=== PATIENT | male | born 1980 | race Hispanic/Latino ===

== ENCOUNTER 2017-07-27 10:46 | Emergency (ER) | payer SELFPAY ==
[2017-07-27] MEDS ORDERED: Dexamethasone 4 mg/ml Vial ONE ×2 (11:56→11:59)
[2017-07-27] MEDS ORDERED: cefTRIAXone\\ROCEPHIN 1 GM VIAL ONE (11:57)
[2017-07-27] MEDS ORDERED: Lidocaine 1% (PF) 30 ML VIAL ONE (11:57)
== END 2017-07-27 12:44 | disposition home or self-care (01) ==
LOC: ERS 10:46
DX: J02.9 Acute pharyngitis, unspecified (principal); F17.210 Nicotine dependence, cigarettes, uncomplicated
CPT/HCPCS: 87430; 96372; J0696; J1100; J2001

== ENCOUNTER 2017-10-06 13:53 | Emergency (ER) | payer SELFPAY ==
[2017-10-06 16:01] LABS: #Eosinphils 0.1 thou/uL (0.0-0.7); #Lymphocytes 3.1 thou/uL (1.20-3.40); #Monocytes 0.8 thou/uL (0.11-0.59); #Neutrophils 6.1 thou/uL (1.40-6.50); %Basophils 0.4 % (0.0-1.0); %Eosinophils 0.9 % (0.0-10.0); %Lymphocytes 30.6 % (21.0-51.0); %Monocytes 7.6 % (0.0-10.0); %Neutrophils 60.5 % (42.0-75.0); Hemoglobin 15.9 g/dL (14.0-18.0); Mean Corpuscular HGB CONC 33.9 g/dL (32.0-36.0); Mean Corpuscular Hemoglobin 30.9 pg (27.0-31.0); Mean Corpuscular Volume 91.1 fl (80.0-94.0); Mean Platelet Volume 6.8 fL (7.4-10.4); Platelet Count 375 thou/uL (130-400); RBC Distribution Width 11.9 % (11.5-14.5); Red Blood Cell (RBC) Count 5.13 mill/uL (4.70-6.10)
[2017-10-06 16:23] LABS: ALT (SGPT) 37 U/L (8-55); AST (SGOT) 20 U/L (5-34); Albumin 4.6 g/dL (3.5-5.0); Alkaline Phosphatase 109 U/L (40-150); Anion Gap 10 mmol/L (10-20); BUN (Urea Nitrogen) 21 mg/dL (8.9-20.6); Bilirubin, Total 0.4 mg/dL (0.2-1.2); Calc. Creatinine Clearance 0 mL/min (70-130); Calcium 9.8 mg/dL (7.8-10.44); Carbon Dioxide 26 mmol/L (22-29); Chloride 104 mmol/L (98-107); Estimated GFR-MDRD Greater than 90; Globulin 3.3 g/dL (2.4-3.5); Glucose 106 mg/dL (70-105); Lipase 23 U/L (8-78); Protein, Total 7.9 g/dL (6.0-8.3); Sodium 136 mmol/L (136-145)
[2017-10-06 18:15] LABS: Bilirubin Negative (Negative); Blood, Urine Trace (Negative); Clarity CLEAR (Clear); Glucose, Urine (Dipstick) Negative (Negative); Leukocyte Negative (Negative); Nitrite Negative (Negative); Protein, Urine (Dipstick) Negative (Neg-Trace); Specific Gravity, Urine 1.011 (1.002-1.036); Urobilinogen 0.2 mg/dL (0.2-1.0)
[2017-10-06 18:42] LABS: Bacteria/HPF None Seen HPF (None Seen); Hyaline Casts/LPF NONE SEEN LPF (0-3 Hyaline); RBC/HPF 0-3 HPF (0-3); Squamous Epithelial None Seen HPF (0-3); WBC/HPF 0-3 HPF (0-3)
[2017-10-06] MEDS ORDERED: Fentanyl 100 MCG/2 ML VIAL ONE ×2 (19:23→21:16)
[2017-10-06] MEDS ORDERED: Ketorolac Tromethamine 30 MG/ML VIAL ONE (21:16)
--- NOTE | 2017-10-06 23:15 | ULT ---
EXAM: GALLBLADDER ULTRASOUND 10/06/17 HISTORY: Right upper quadrant pain. COMPARISON: 06/27/15 TECHNIQUE: Utilizing a multihertz transducer, sonographic imaging of the right upper quadrant was performed in t he longitudinal and transverse plane. FINDINGS: Pancreas is obscured by bowel gas. Heterogeneous echotexture of the liver which may be due to hepatic steatosis or hepatocellular diseas e. Limited vascular hepatic masses and intrahepatic biliary dilatation. Main portal vein is patent. Appropriate directional flow. Right kidney demonstrates cortical thinning. No hydronephrosis. Right kidney measures 4.9 x 11.2 x 5. 4 cm. No sonographic evidence of cholelithiasis, gallbladder wall thickening or pericholecystic fluid. Nega tive Beasley's sign. Common bile duct diameter is 0.3 cm. IMPRESSION: No sonographic evidence of cholelithiasis or cholecystitis. POS: [facility]
--- NOTE | 2017-10-07 00:26 | CT ---
EXAM: ABDOMEN CT WITH CONTRAST PELVIC CT WITH CONTRAST HISTORY: Nausea. Right-sided abdominal pain. Pain radiates to the upper back. COMPARISON: 11/23/2011. TECHNIQUE: Abdomen and pelvic CT performed with IV contrast. Enteric contrast was not administered. Coronal re formatted images are submitted for interpretation. FINDINGS: ABDOMEN CT: Chronic changes in lung bases. Heart size is within normal limits. No pericardial effusion. The de scending thoracic aorta and abdominal aorta are normal caliber. No periaortic fat stranding. Symmetric attenuation of the psoas muscles. Intra- and extrahepatic pleural vein is patent. Gallbladder is unremarkable. Liver, spleen, and adrenal glands have appropriate enhancement. There is mild atrophy of the body of the pancreas, unchanged from the prior exam. Symmetric enhancement of the kidneys. Bilaterally, no obstructive uropathy. No gastrohepatic, retrocrural, or periportal lymphadenopathy. No mesenteric mass, lymphadenopathy, free air, or free fluid. Limited evaluation of the alimentary canal due to lack of oral contrast. Gastric mucosa, duodenum, and multiple normal-caliber small bowel loops are noted. Ileoce kalin junction is normal. Normal caliber appendix. Scattered fecal material in the nondistended, nond ilated colon. Occasional diverticulum in the cecum and colon. No diverticulitis. PELVIC CT: Urinary bladder is unremarkable. No pelvic mass, lymphadenopathy, free air, or free fluid. No lytic or blastic lesions in the osseous structures. IMPRESSION: No acute abnormality in the abdomen or pelvis. POS: [facility]
== END 2017-10-06 23:43 | disposition home or self-care (01) ==
LOC: ERS 13:53
DX: R10.11 Right upper quadrant pain (principal); F17.210 Nicotine dependence, cigarettes, uncomplicated
CPT/HCPCS: 36415; 74177; 76705; 80053; 81003; 81015; 83690; 85025; 96374; 96375; 96376; J1885; J3010

== ENCOUNTER 2017-10-07 09:05 | Outpatient (CLI) | payer OTHER ==
--- NOTE | 2017-10-07 10:57 | MRI ---
MRI LEFT FOREARM WITHOUT CONTRAST: History: Injury. Comparison: None. FINDINGS: There is no fracture or malalignment. No stress edema. Muscles: Normal muscle signal. No evidence for strain. No evidence of partial tearing. No hemorrhage. Vasculature: Intact. Ligaments: Visualized portions of the collateral ligaments of the elbow are intact. IMPRESSION: Normal exam of the forearm. POS: [facility]
== END 2017-10-07 09:06 | disposition home or self-care (01) ==
LOC: MRI 09:05
PROVIDERS: ATTEND Family Medicine
DX: S56.812 Strain of other muscles, fascia and tendons at forearm level, left arm (principal)

== ENCOUNTER 2018-02-21 23:35 | Emergency (ER) | payer SELFPAY ==
[2018-02-21] MEDS ORDERED: Lidocaine 1% w/Epinephrine 1:100K 20 ML VIAL ONE (23:45)
[2018-02-22] MEDS ORDERED: Adacel (T-DAP) 0.5 ML VIAL ONE (00:08)
== END 2018-02-22 00:36 | disposition home or self-care (01) ==
LOC: ERS 23:35
DX: S61.512A Laceration without foreign body of left wrist, initial encounter (principal); F17.210 Nicotine dependence, cigarettes, uncomplicated; W26.0XXA Contact with knife, initial encounter; Y92.009 Unspecified place in unspecified non-institutional (private) residence as the place of occurrence of the external cause
CPT/HCPCS: 12001; 90471; 90715; J2001

== ENCOUNTER 2018-02-22 17:21 | Emergency (ER) | payer SELFPAY ==
[2018-02-22] MEDS ORDERED: Bacitracin Zinc 1 Packet ONE (19:33)
== END 2018-02-22 19:44 | disposition home or self-care (01) ==
LOC: ERS 17:21
DX: Z48.817 Encounter for surgical aftercare following surgery on the skin and subcutaneous tissue (principal); F17.210 Nicotine dependence, cigarettes, uncomplicated
CPT/HCPCS: 99282

== ENCOUNTER 2018-03-04 17:55 | Emergency (ER) | payer SELFPAY | END 2018-03-04 18:22 | disposition home or self-care (01) | LOC: ERS 17:55 | DX: S51.812D Laceration without foreign body of left forearm, subsequent encounter (principal); F17.210 Nicotine dependence, cigarettes, uncomplicated ==

== ENCOUNTER 2018-03-08 21:00 | Emergency (ER) | payer SELFPAY ==
[2018-03-08 21:30] LABS: #Eosinphils 0.1 thou/uL (0.0-0.7); #Lymphocytes 3.5 thou/uL (1.20-3.40); #Monocytes 0.9 thou/uL (0.11-0.59); #Neutrophils 5.7 thou/uL (1.40-6.50); %Basophils 0.4 % (0.0-1.0); %Eosinophils 1.3 % (0.0-10.0); %Lymphocytes 34.3 % (21.0-51.0); %Monocytes 8.7 % (0.0-10.0); %Neutrophils 55.4 % (42.0-75.0); Hemoglobin 14.2 g/dL (14.0-18.0); Mean Corpuscular HGB CONC 35.7 g/dL (32.0-36.0); Mean Corpuscular Hemoglobin 31.3 pg (27.0-31.0); Mean Corpuscular Volume 87.6 fl (80.0-94.0); Platelet Count 291 thou/uL (130-400); RBC Distribution Width 11.9 % (11.5-14.5); Red Blood Cell (RBC) Count 4.55 mill/uL (4.70-6.10); White Blood Cell (WBC) Count 10.2 thou/uL (4.8-10.8)
[2018-03-08 21:46] LABS: Bilirubin Negative (Negative); Blood, Urine Negative (Negative); Clarity CLEAR (Clear); Glucose, Urine (Dipstick) Negative (Negative); Leukocyte Negative (Negative); Nitrite Negative (Negative); Protein, Urine (Dipstick) Negative (Neg-Trace); Specific Gravity, Urine 1.024 (1.002-1.036); pH, Urine 6.5 (5.0-9.0)
[2018-03-08 21:51] LABS: ALT (SGPT) 27 U/L (8-55); AST (SGOT) 19 U/L (5-34); Albumin 4.6 g/dL (3.5-5.0); Alkaline Phosphatase 122 U/L (40-150); Anion Gap 12 mmol/L (10-20); BUN (Urea Nitrogen) 17 mg/dL (8.9-20.6); Bilirubin, Total 0.3 mg/dL (0.2-1.2); CK (CPK) 458 U/L (30-200); Calc. Creatinine Clearance 0 mL/min (70-130); Calcium 9.6 mg/dL (7.8-10.44); Carbon Dioxide 24 mmol/L (22-29); Chloride 106 mmol/L (98-107); Estimated GFR-MDRD Greater than 90; Globulin 3.1 g/dL (2.4-3.5); Glucose 97 mg/dL (70-105); Magnesium 2.4 mg/dL (1.6-2.6); Potassium 4.1 mmol/L (3.5-5.1); Protein, Total 7.7 g/dL (6.0-8.3); Sodium 138 mmol/L (136-145)
== END 2018-03-08 23:05 | disposition home or self-care (01) ==
LOC: ERS 21:00
DX: E86.9 Volume depletion, unspecified (principal); F17.210 Nicotine dependence, cigarettes, uncomplicated
CPT/HCPCS: 36415; 80053; 81003; 82550; 83735; 85025; 96360

== ENCOUNTER 2018-03-26 08:16 | Emergency (ER) | payer SELFPAY ==
[2018-03-26 08:52] LABS: #Eosinphils 0.1 thou/uL (0.0-0.7); #Lymphocytes 1.9 thou/uL (1.20-3.40); #Monocytes 0.6 thou/uL (0.11-0.59); #Neutrophils 6.1 thou/uL (1.40-6.50); %Basophils 0.3 % (0.0-1.0); %Eosinophils 1.2 % (0.0-10.0); %Lymphocytes 21.9 % (21.0-51.0); %Monocytes 7.3 % (0.0-10.0); %Neutrophils 69.3 % (42.0-75.0); Hemoglobin 15.2 g/dL (14.0-18.0); Mean Corpuscular HGB CONC 34.7 g/dL (32.0-36.0); Mean Corpuscular Hemoglobin 30.2 pg (27.0-31.0); Mean Corpuscular Volume 87.3 fL (78.0-98.0); Mean Platelet Volume 6.9 fL (7.4-10.4); Platelet Count 351 thou/uL (130-400); RBC Distribution Width 11.9 % (11.5-14.5); Red Blood Cell (RBC) Count 5.02 mill/uL (4.70-6.10); White Blood Cell (WBC) Count 8.8 thou/uL (4.8-10.8)
[2018-03-26 08:54] LABS: Bilirubin Negative (Negative); Blood, Urine Negative (Negative); Clarity CLEAR (Clear); Glucose, Urine (Dipstick) Negative (Negative); Leukocyte Negative (Negative); Nitrite Negative (Negative); Protein, Urine (Dipstick) Trace mg/dL (Neg-Trace); Specific Gravity, Urine 1.021 (1.002-1.036); Urobilinogen 0.2 mg/dL (0.2-1.0); pH, Urine 7.5 (5.0-9.0)
[2018-03-26] MEDS ORDERED: Dicyclomine 20 MG TAB ONE (08:55)
[2018-03-26] MEDS ORDERED: Ondansetron ODT 8 MG TAB ONE (08:55)
[2018-03-26 09:01] LABS: ALT (SGPT) 37 U/L (8-55); AST (SGOT) 22 U/L (5-34); Albumin 4.7 g/dL (3.5-5.0); Alkaline Phosphatase 117 U/L (40-150); Anion Gap 15 mmol/L (10-20); BUN (Urea Nitrogen) 17 mg/dL (8.9-20.6); Bilirubin, Total 0.4 mg/dL (0.2-1.2); CK (CPK) 363 U/L (30-200); Calc. Creatinine Clearance 0 mL/min (70-130); Calcium 9.7 mg/dL (7.8-10.44); Carbon Dioxide 25 mmol/L (22-29); Chloride 103 mmol/L (98-107); Estimated GFR-MDRD 88; Globulin 3.2 g/dL (2.4-3.5); Glucose 110 mg/dL (70-105); Lipase 21 U/L (8-78); Potassium 4.1 mmol/L (3.5-5.1); Protein, Total 7.9 g/dL (6.0-8.3); Sodium 139 mmol/L (136-145)
[2018-03-26 09:05] LABS: CKMB 3.4 ng/mL (0-6.6); Troponin I Less than 0.010 ng/mL (< 0.028)
--- NOTE | 2018-03-26 09:28 | RAD ---
PA AND LATERAL VIEWS CHEST: History: Chest pain FINDINGS: Comparison made with exam of 04-07-08. The cardiomediastinum is normal. The lungs are expanded and clear. The bony thorax is inromal. IMPRESSION: Normal exam. POS: [facility]
[2018-03-26 11:18] LABS: Troponin I Less than 0.010 ng/mL (< 0.028)
== END 2018-03-26 12:25 | disposition home or self-care (01) ==
LOC: ERS 08:16
DX: R10.9 Unspecified abdominal pain (principal); R19.7 Diarrhea, unspecified; F17.210 Nicotine dependence, cigarettes, uncomplicated
CPT/HCPCS: 36415; 71046; 80053; 81003; 82550; 82553; 83690; 84484; 85025; 93005; 96360

== ENCOUNTER 2018-08-05 12:16 | Emergency (ER) | payer OTHER, SELFPAY ==
[2018-08-05] MEDS ORDERED: Ketorolac Tromethamine 30 MG/ML VIAL ONE (12:39)
[2018-08-05] MEDS ORDERED: traMADol HCl 50 MG TAB ONE (14:02)
--- NOTE | 2018-08-05 14:21 | RAD ---
RIGHT FOOT 3 VIEWS: Date: 08/05/18 HISTORY: injury. Right foot pain. FINDINGS/IMPRESSION: No fracture or dislocation is seen. POS: [facility]
== END 2018-08-05 14:09 | disposition home or self-care (01) ==
LOC: ERS 12:16
DX: S90.31XA Contusion of right foot, initial encounter (principal); F17.210 Nicotine dependence, cigarettes, uncomplicated; Z79.899 Other long term (current) drug therapy; W23.0XXA Caught, crushed, jammed, or pinched between moving objects, initial encounter
CPT/HCPCS: 96372; J1885

== ENCOUNTER 2018-09-25 19:45 | Emergency (ER) | payer SELFPAY | END 2018-09-25 20:15 | disposition home or self-care (01) | LOC: ERS 19:45 | DX: B86 Scabies (principal); F17.210 Nicotine dependence, cigarettes, uncomplicated | CPT/HCPCS: 99282 ==

== ENCOUNTER 2018-10-13 18:29 | Emergency (ER) | payer SELFPAY | END 2018-10-13 19:53 | disposition home or self-care (01) | LOC: ERS 18:29 | DX: L25.9 Unspecified contact dermatitis, unspecified cause (principal); L03.113 Cellulitis of right upper limb; F17.210 Nicotine dependence, cigarettes, uncomplicated | CPT/HCPCS: 99282 ==

== ENCOUNTER 2018-12-15 18:56 | Emergency (ER) | payer SELFPAY | END 2018-12-15 21:27 | disposition left against medical advice (07) | LOC: ERS 18:56 | DX: Z53.21 Procedure and treatment not carried out due to patient leaving prior to being seen by health care provider (principal) ==

== ENCOUNTER 2019-04-28 16:04 | Emergency (ER) | payer BC, SELFPAY ==
[2019-04-28] MEDS ORDERED: Ketorolac Tromethamine 30 MG/ML VIAL ONE (17:00)
[2019-04-28 17:02] LABS: #Eosinphils 0.2 thou/uL (0.0-0.7); #Monocytes 0.8 thou/uL (0.11-0.59); #Neutrophils 5.3 thou/uL (1.40-6.50); %Basophils 0.3 % (0.0-1.0); %Eosinophils 2.2 % (0.0-10.0); %Monocytes 9.6 % (0.0-10.0); %Neutrophils 63.9 % (42.0-75.0); Hemoglobin 13.3 g/dL (14.0-18.0); Mean Corpuscular HGB CONC 34.4 g/dL (32.0-36.0); Mean Corpuscular Hemoglobin 31.1 pg (27.0-31.0); Mean Corpuscular Volume 90.4 fL (78.0-98.0); Mean Platelet Volume 7.5 fL (7.4-10.4); Platelet Count 288 thou/uL (130-400); Red Blood Cell (RBC) Count 4.26 mill/uL (4.70-6.10); White Blood Cell (WBC) Count 8.4 thou/uL (4.8-10.8)
[2019-04-28 17:44] LABS: ALT (SGPT) 22 U/L (8-55); AST (SGOT) 16 U/L (5-34); Alkaline Phosphatase 112 U/L (40-150); Anion Gap 12 mmol/L (10-20); BUN (Urea Nitrogen) 14 mg/dL (8.9-20.6); Bilirubin, Total 0.2 mg/dL (0.2-1.2); CK (CPK) 242 U/L (30-200); Calc. Creatinine Clearance 0 mL/min (70-130); Calcium 9.3 mg/dL (7.8-10.44); Carbon Dioxide 24 mmol/L (22-29); Chloride 106 mmol/L (98-107); Estimated GFR-MDRD Greater than 90; Globulin 2.6 g/dL (2.4-3.5); Glucose 114 mg/dL (70-105); Potassium 3.5 mmol/L (3.5-5.1); Protein, Total 6.6 g/dL (6.0-8.3); Sodium 138 mmol/L (136-145)
[2019-04-28 18:02] LABS: Bilirubin Negative (Negative); Blood, Urine Negative (Negative); Clarity Clear (Clear); Glucose, Urine (Dipstick) Normal (Negative); Leukocyte Negative Leu/uL (Negative); Nitrite Negative (Negative); Protein, Urine (Dipstick) Negative (Neg-Trace); Urobilinogen 3 mg/dL (Less than 2)
[2019-04-28] MEDS ORDERED: Acetaminophen 500 MG TAB ONE (18:45)
== END 2019-04-28 18:51 | disposition home or self-care (01) ==
LOC: ERS 16:04
DX: T67.5XXA Heat exhaustion, unspecified, initial encounter (principal); F17.210 Nicotine dependence, cigarettes, uncomplicated
CPT/HCPCS: 36415; 80053; 81003; 82550; 85025; 93005; 96361; 96374; J1885

== ENCOUNTER 2019-10-29 13:46 | Emergency (ER) | payer BC ==
[~2019-10-29 13:46] MED LIST: Iopamidol-370 76% 500 ML 1 ML ONE
[2019-10-29 14:20] LABS: Bacteria/HPF None Seen HPF (None Seen); Bilirubin Negative (Negative); Blood, Urine Negative (Negative); Clarity Clear (Clear); Glucose, Urine (Dipstick) Normal (Negative); Leukocyte Negative Leu/uL (Negative); Mucous/LPF 1+ LPF (<2+); Nitrite Negative (Negative); Protein, Urine (Dipstick) 30 mg/dL (Neg-Trace); RBC/HPF 0-3 HPF (0-3); Squamous Epithelial 0-3 HPF (0-3); WBC/HPF 0-3 HPF (0-3)
[2019-10-29 14:21] LABS: #Basophils 0.1 thou/uL (0.0-0.2); #Eosinphils 0.2 thou/uL (0.0-0.7); #Lymphocytes 3.6 thou/uL (1.20-3.40); #Monocytes 1.2 thou/uL (0.11-0.59); #Neutrophils 6.9 thou/uL (1.40-6.50); %Basophils 0.9 % (0.0-1.0); %Eosinophils 1.6 % (0.0-10.0); %Lymphocytes 29.9 % (21.0-51.0); %Monocytes 10.1 % (0.0-10.0); %Neutrophils 57.5 % (42.0-75.0); Hemoglobin 16.2 g/dL (14.0-18.0); Mean Corpuscular HGB CONC 33.7 g/dL (32.0-36.0); Mean Corpuscular Hemoglobin 30.5 pg (27.0-31.0); Mean Corpuscular Volume 90.3 fL (78.0-98.0); Mean Platelet Volume 7.1 fL (7.4-10.4); Platelet Count 394 thou/uL (130-400); RBC Distribution Width 12.4 % (11.5-14.5); White Blood Cell (WBC) Count 12.1 thou/uL (4.8-10.8)
[2019-10-29 14:28] LABS: Sperm/HPF Rare HPF (None Seen)
[2019-10-29 14:42] LABS: ALT (SGPT) 35 U/L (8-55); AST (SGOT) 25 U/L (5-34); Albumin 4.5 g/dL (3.5-5.0); Alkaline Phosphatase 109 U/L (40-110); Anion Gap 14 mmol/L (10-20); BUN (Urea Nitrogen) 12 mg/dL (8.9-20.6); Bilirubin, Total 0.2 mg/dL (0.2-1.2); Calc. Creatinine Clearance 0 mL/min (70-130); Calcium 9.3 mg/dL (7.8-10.44); Carbon Dioxide 25 mmol/L (22-29); Chloride 106 mmol/L (98-107); Estimated GFR-MDRD 81; Globulin 2.9 g/dL (2.4-3.5); Glucose 105 mg/dL (70-105); Potassium 4.7 mmol/L (3.5-5.1); Protein, Total 7.4 g/dL (6.0-8.3); Sodium 140 mmol/L (136-145)
[2019-10-29] MEDS ORDERED: Lidocaine Viscous Sol 2% 15 ml UD Cup ONE (17:16)
[2019-10-29] MEDS ORDERED: Mag-Al 1200 mg/1200 mg/30 ML UDCUP ONE (17:16)
[2019-10-29] MEDS ORDERED: Famotidine/PF 20 mg/2ml Vial ONE (17:16)
[2019-10-29] MEDS ORDERED: Ondansetron PF 4 MG/2 ML Vial ONE (17:16)
--- NOTE | 2019-10-29 17:58 | CT ---
CT ABDOMEN AND PELVIS WITH CONTRAST 10/29/19 COMPARISON: 10/06/17 HISTORY: Right upper quadrant abdominal pain for two days when having bowel movements. TECHNIQUE: Multiple contiguous axial images were obtained in a CT of the abdomen and pelvis with contrast. Sagit gerda and coronal reformats were performed. FINDINGS: The liver, gallbladder, kidneys, adrenal glands, spleen and pancreas are unremarkable. No free air, f ree fluid, or stranding changes are seen in the abdomen or pelvis. The large and small bowel are unremarkable. The appendix is very small without significant enlargemen t. No abdominal or pelvic lymphadenopathy are seen. The osseous structures, visualized inferior thorax, and abdominal wall soft tissues are unremarkable. IMPRESSION: No evidence of acute intra-abdominal/pelvic abnormality. POS: [facility]
== END 2019-10-29 19:26 | disposition home or self-care (01) ==
LOC: ERS 13:46
DX: R10.11 Right upper quadrant pain (principal); R11.0 Nausea; F17.210 Nicotine dependence, cigarettes, uncomplicated
CPT/HCPCS: 36415; 74177; 80053; 81003; 81015; 83605; 83690; 85025; 96361; 96372; 96374; 96375; J0500; J2405; Q9967; S0028

== ENCOUNTER 2019-12-13 18:21 | Emergency (ER) | payer BC | END 2019-12-13 20:44 | disposition home or self-care (01) | LOC: ERS 18:21 | DX: J11.1 Influenza due to unidentified influenza virus with other respiratory manifestations (principal); Z87.891 Personal history of nicotine dependence | CPT/HCPCS: 87804; 99283 ==

== ENCOUNTER 2020-03-28 16:55 | Emergency (ER) | payer BC, OTHER ==
--- NOTE | 2020-03-28 17:30 | RAD ---
LEFT HAND THREE VIEWS: 03/28/20 HISTORY: Trauma to hand. There is a tuft fracture of the distal phalanx of the middle finger. Slight deformity to the tuft of the distal phalanx of the ring finger similar to a previous 2016 study. IMPRESSION: Tuft fracture middle finger. POS: [facility]
[2020-03-28] MEDS ORDERED: HYDROcodone/Acetaminophen 5/325 mg Tablet ONE (17:54)
[2020-03-28] MEDS ORDERED: Ketorolac Tromethamine 30 MG/ML VIAL ONE (17:54)
== END 2020-03-28 18:24 | disposition home or self-care (01) ==
LOC: ERS 16:55
DX: S62.633A Displaced fracture of distal phalanx of left middle finger, initial encounter for closed fracture (principal); M79.645 Pain in left finger(s); Z87.891 Personal history of nicotine dependence; W23.0XXA Caught, crushed, jammed, or pinched between moving objects, initial encounter
CPT/HCPCS: 96372; J1885

== ENCOUNTER 2020-04-01 15:33 | Emergency (ER) | payer BC, OTHER ==
[2020-04-02 13:59] LABS: SARS-CoV-2 MS2 Positive; SARS-CoV-2 N Gene Negative; SARS-CoV-2 S Gene Negative; SARS-CoV-2 orf1ab Negative
== END 2020-04-01 16:29 | disposition home or self-care (01) ==
LOC: ERS 15:33
DX: Z20.828 Contact with and (suspected) exposure to other viral communicable diseases (principal); Z87.891 Personal history of nicotine dependence
CPT/HCPCS: 87635; 99283; U0003

== ENCOUNTER 2020-04-16 21:56 | Emergency (ER) | payer BC, OTHER ==
[2020-04-17 15:35] LABS: SARS-CoV-2 MS2 Positive; SARS-CoV-2 N Gene Negative; SARS-CoV-2 S Gene Negative; SARS-CoV-2 orf1ab Negative
== END 2020-04-16 22:40 | disposition home or self-care (01) ==
LOC: ERS 21:56
DX: J06.9 Acute upper respiratory infection, unspecified (principal); Z20.828 Contact with and (suspected) exposure to other viral communicable diseases; Z87.891 Personal history of nicotine dependence
CPT/HCPCS: 87635; 99283; U0003

== ENCOUNTER 2020-07-22 10:30 | Emergency (ER) | payer BC ==
--- NOTE | 2020-07-22 11:11 | RAD ---
Exam:Right humerus 2 views HISTORY: Fall. Pain. COMPARISON: None FINDINGS: No fracture, cortical irregularity or periosteal reaction. IMPRESSION: No fracture.
[2020-07-22] MEDS ORDERED: Ketorolac Tromethamine 30 MG/ML VIAL ONE (11:47)
--- NOTE | 2020-07-22 12:54 | RAD ---
RIGHT SHOULDER RADIOGRAPHS 3 VIEWS: DATE: 07/22/2020. PROVIDED CLINICAL HISTORY: Pain status post injury. FINDINGS: No evidence for a fracture or other acute osseous abnormality. If there is persistent clinical oh rn, conservative management and followup imaging are advised. IMPRESSION: As above. POS: [facility]
== END 2020-07-22 12:51 | disposition home or self-care (01) ==
LOC: ERS 10:30
DX: S46.311A Strain of muscle, fascia and tendon of triceps, right arm, initial encounter (principal); Z87.891 Personal history of nicotine dependence; W18.30XA Fall on same level, unspecified, initial encounter
CPT/HCPCS: 29105; 96374; J1885

== ENCOUNTER 2020-09-11 06:03 | Emergency (ER) | payer BC ==
[2020-09-11 06:37] LABS: #Basophils 0.1 thou/uL (0.0-0.2); #Eosinphils 0.1 thou/uL (0.0-0.7); #Lymphocytes 2.4 thou/uL (1.20-3.40); #Monocytes 0.8 thou/uL (0.11-0.59); #Neutrophils 6.4 thou/uL (1.40-6.50); %Basophils 0.5 % (0.0-1.0); %Eosinophils 1.2 % (0.0-10.0); %Monocytes 7.7 % (0.0-10.0); %Neutrophils 65.5 % (42.0-75.0); Hemoglobin 14.7 g/dL (14.0-18.0); Mean Corpuscular HGB CONC 34.1 g/dL (32.0-36.0); Mean Corpuscular Hemoglobin 30.1 pg (27.0-31.0); Mean Corpuscular Volume 88.1 fL (78.0-98.0); Mean Platelet Volume 7.1 fL (7.4-10.4); Platelet Count 372 thou/uL (130-400); RBC Distribution Width 11.7 % (11.5-14.5); White Blood Cell (WBC) Count 9.8 thou/uL (4.8-10.8)
[2020-09-11] MEDS ORDERED: Aspirin Chewable 81 MG TAB ONE (06:40)
[2020-09-11 07:04] LABS: ALT (SGPT) 28 U/L (8-55); AST (SGOT) 15 U/L (5-34); Albumin 4.2 g/dL (3.5-5.0); Alkaline Phosphatase 117 U/L (40-110); Anion Gap 15 mmol/L (10-20); BUN (Urea Nitrogen) 16 mg/dL (8.9-20.6); Bilirubin, Total 0.4 mg/dL (0.2-1.2); Calc. Creatinine Clearance 0 mL/min (70-130); Carbon Dioxide 23 mmol/L (22-29); Chloride 106 mmol/L (98-107); Globulin 2.9 g/dL (2.4-3.5); Glucose 94 mg/dL (70-105); Potassium 4.5 mmol/L (3.5-5.1); Protein, Total 7.1 g/dL (6.0-8.3); Sodium 139 mmol/L (136-145)
--- NOTE | 2020-09-11 07:37 | RAD ---
Portable frontal chest radiograph: 09/11/2020 COMPARISON: 01/07/2017 HISTORY: Chest pain with shortness of breath FINDINGS: Subtle mild hazy density is noted lateral to the left hilum and within the medial left lung base. Mild infiltrate is a possibility. Right lung appears clear. IMPRESSION: Mild hazy density in the mid left lung zone which could represent nonspecific mild infilt rate on the basis of infectious pneumonitis.
== END 2020-09-11 10:45 | disposition home or self-care (01) ==
LOC: ERS 06:03
DX: J18.9 Pneumonia, unspecified organism (principal); Z87.891 Personal history of nicotine dependence
CPT/HCPCS: 36415; 71045; 80053; 83880; 84484; 85025; 93005

== ENCOUNTER 2020-10-08 03:07 | Emergency (ER) | payer BC ==
--- NOTE | 2020-10-08 08:53 | RAD ---
PORTABLE CHEST: HISTORY: Chest pain. COMPARISON: 09/11/2020. FINDINGS: Lung vincent are clear. No infiltrate. Heart and mediastinum unremarkable. IMPRESSION: No acute process. POS: [facility]
[2020-10-08 09:09] LABS: SARS-CoV-2 MS2 Positive; SARS-CoV-2 N Gene Positive; SARS-CoV-2 S Gene Positive; SARS-CoV-2 by NAA DETECTED (NotDetected); SARS-CoV-2 orf1ab Positive
== END 2020-10-08 04:04 | disposition home or self-care (01) ==
LOC: ERS 03:07
DX: J06.9 Acute upper respiratory infection, unspecified (principal); Z87.891 Personal history of nicotine dependence
CPT/HCPCS: 71045; 87635; 93005; U0003

== ENCOUNTER 2021-02-08 04:00 | Emergency (ER) | payer BC ==
[2021-02-08] MEDS ORDERED: HYDROcodone/Acetaminophen 5/325 mg Tablet ONE (04:15)
[2021-02-08] MEDS ORDERED: Ketorolac Tromethamine 30 MG/ML VIAL ONE (04:15)
== END 2021-02-08 05:05 | disposition home or self-care (01) ==
LOC: ERS 04:00
DX: S39.012A Strain of muscle, fascia and tendon of lower back, initial encounter (principal); Z87.891 Personal history of nicotine dependence; X50.0XXA Overexertion from strenuous movement or load, initial encounter
CPT/HCPCS: 96372; 99283; J1885

== ENCOUNTER 2021-03-01 16:35 | Emergency (ER) | payer BC ==
[2021-03-01] MEDS ORDERED: Lidocaine 1% PF 5 ML VIAL ONE (17:08)
== END 2021-03-01 17:26 | disposition home or self-care (01) ==
LOC: ERS 16:35
DX: K02.9 Dental caries, unspecified (principal); K03.81 Cracked tooth; Z87.891 Personal history of nicotine dependence
CPT/HCPCS: 64400

== ENCOUNTER 2021-09-16 12:23 | Emergency (ER) | payer SELFPAY ==
[2021-09-16 12:44] LABS: #Basophils 0.1 thou/uL (0.0-0.2); #Eosinphils 0.1 thou/uL (0.0-0.7); #Lymphocytes 2.7 thou/uL (1.20-3.40); #Monocytes 0.7 thou/uL (0.11-0.59); #Neutrophils 5.3 thou/uL (1.40-6.50); %Basophils 0.9 % (0.0-1.0); %Eosinophils 1.3 % (0.0-10.0); %Monocytes 7.8 % (0.0-10.0); Hemoglobin 14.5 g/dL (14.0-18.0); Mean Corpuscular Hemoglobin 31.3 pg (27.0-31.0); Mean Corpuscular Volume 92.1 fL (78.0-98.0); Mean Platelet Volume 7.3 fL (7.4-10.4); Platelet Count 311 thou/uL (130-400); Red Blood Cell (RBC) Count 4.63 mill/uL (4.70-6.10); White Blood Cell (WBC) Count 8.8 thou/uL (4.8-10.8)
[2021-09-16 13:09] LABS: ALT (SGPT) 19 U/L (8-55); AST (SGOT) 12 U/L (5-34); Alkaline Phosphatase 103 U/L (40-110); Anion Gap 10 mmol/L (10-20); BUN (Urea Nitrogen) 13 mg/dL (8.9-20.6); Bilirubin, Total 0.2 mg/dL (0.2-1.2); Calc. Creatinine Clearance 0 mL/min (70-130); Calcium 9.3 mg/dL (7.8-10.44); Carbon Dioxide 25 mmol/L (22-29); Chloride 109 mmol/L (98-107); Glucose 114 mg/dL (70-105); Potassium 4.1 mmol/L (3.5-5.1); Sodium 140 mmol/L (136-145)
[2021-09-16 13:43] LABS: Bacteria/HPF None Seen HPF (None Seen); Bilirubin Negative (Negative); Blood, Urine Trace (Negative); Clarity Turbid (Clear); Glucose, Urine (Dipstick) Normal (Negative); Ketone, Urine Negative (Negative); Leukocyte Negative Leu/uL (Negative); Nitrite Negative (Negative); Protein, Urine (Dipstick) Negative (Neg-Trace); RBC/HPF 0-3 HPF (0-3); Specific Gravity, Urine 1.023 (1.002-1.036); Squamous Epithelial None Seen HPF (0-3); Urobilinogen Normal mg/dL (Less than 2); WBC/HPF 0-3 HPF (0-3); pH, Urine 6.5 (5.0-9.0)
[2021-09-16] MEDS ORDERED: Ketorolac Tromethamine 30 MG/ML VIAL ONE (13:55)
[2021-09-16] MEDS ORDERED: Acetaminophen 500 MG TAB ONE (13:55)
== END 2021-09-16 15:57 | disposition home or self-care (01) ==
LOC: ERS 12:23
DX: S39.012A Strain of muscle, fascia and tendon of lower back, initial encounter (principal); Z87.891 Personal history of nicotine dependence
CPT/HCPCS: 36415; 74176; 80053; 81003; 81015; 85025; 87086; 96374; J1885

== ENCOUNTER 2021-10-06 17:52 | Emergency (ER) | payer SELFPAY ==
[2021-10-07 12:30] LABS: SARS-CoV-2 PCR by NAA DETECTED (NotDetected)
== END 2021-10-06 18:25 | disposition home or self-care (01) ==
LOC: ERS 17:52
DX: U07.1 COVID-19 (principal); Z87.891 Personal history of nicotine dependence
CPT/HCPCS: 99283; U0003; U0005

== ENCOUNTER 2022-03-22 10:43 | Emergency (ER) | payer OTHER, SELFPAY ==
[2022-03-22 11:06] LABS: #Eosinphils 0.1 thou/uL (0.0-0.7); #Lymphocytes 2.5 thou/uL (1.20-3.40); #Monocytes 0.7 thou/uL (0.11-0.59); #Neutrophils 6.7 thou/uL (1.40-6.50); %Basophils 0.4 % (0.0-1.0); %Eosinophils 0.7 % (0.0-10.0); %Lymphocytes 25.2 % (21.0-51.0); %Monocytes 6.6 % (0.0-10.0); %Neutrophils 67.1 % (42.0-75.0); Hemoglobin 16.1 g/dL (14.0-18.0); Mean Corpuscular HGB CONC 33.3 g/dL (32.0-36.0); Mean Corpuscular Hemoglobin 30.7 pg (27.0-31.0); Mean Platelet Volume 6.8 fL (7.4-10.4); Platelet Count 351 thou/uL (130-400); RBC Distribution Width 12.2 % (11.5-14.5); Red Blood Cell (RBC) Count 5.24 mill/uL (4.70-6.10)
[2022-03-22] MEDS ORDERED: Ketorolac Tromethamine 30 MG/ML VIAL ONE (11:11)
[2022-03-22 11:25] LABS: ALT (SGPT) 20 U/L (8-55); AST (SGOT) 13 U/L (5-34); Albumin 3.8 g/dL (3.5-5.0); Alkaline Phosphatase 81 U/L (40-110); Anion Gap 13 mmol/L (10-20); BUN (Urea Nitrogen) 13 mg/dL (8.9-20.6); Bilirubin, Total 0.6 mg/dL (0.2-1.2); Calc. Creatinine Clearance 0 mL/min (70-130); Calcium 8.7 mg/dL (7.8-10.44); Carbon Dioxide 24 mmol/L (22-29); Chloride 106 mmol/L (98-107); Globulin 2.4 g/dL (2.4-3.5); Glucose 146 mg/dL (70-105); Potassium 3.5 mmol/L (3.5-5.1); Protein, Total 6.2 g/dL (6.0-8.3); Sodium 139 mmol/L (136-145)
[2022-03-22 13:28] LABS: Troponin I Less than 0.010 ng/mL (< 0.028)
== END 2022-03-22 14:23 | disposition home or self-care (01) ==
LOC: ERS 10:43
DX: R07.2 Precordial pain (principal); I10 Essential (primary) hypertension; Z87.891 Personal history of nicotine dependence
CPT/HCPCS: 36415; 71045; 80053; 84484; 85025; 93005; 96374; J1885

== ENCOUNTER 2022-07-30 16:09 | Emergency (ER) | payer SELFPAY ==
[2022-07-30] MEDS ORDERED: Proparacaine 0.5% Opth 15 ML BOT ONE (16:52)
[2022-07-30] MEDS ORDERED: Fluorescein Opthalmic Strip ONE (16:54)
== END 2022-07-30 17:14 | disposition home or self-care (01) ==
LOC: ERS 16:09
DX: H57.89 Other specified disorders of eye and adnexa (principal); W22.09XA Striking against other stationary object, initial encounter
CPT/HCPCS: 99283

== ENCOUNTER 2025-05-12 12:16 | Emergency (ER) | payer SELFPAY ==
[2025-05-12 14:49] LABS: #Basophils Less than 0.03 10x3/uL (0.0-0.2); #Eosinophils Less than 0.03 10x3/uL (0.0-0.7); #Monocytes 0.09 10x3/uL (0.11-0.59); #Neutrophils 9.27 10x3/uL (1.40-6.50); %Basophils 0.1 % (0.0-1.0); %Eosinophils 0.0 % (0.0-10.0); %Lymphocytes 6.5 % (21.0-51.0); %Monocytes 0.9 % (0.0-10.0); %Neutrophils 92.1 % (42.0-75.0); Hematocrit 39.4 % (42.0-52.0); Hemoglobin 13.2 g/dL (14.0-18.0); Mean Corpuscular Hemoglobin 29.1 pg (27.0-31.0); Mean Corpuscular Volume 86.8 fL (78.0-98.0); Platelet Count 358 10x3/uL (130-400); Red Blood Cell (RBC) Count 4.54 mill/uL (4.70-6.10); White Blood Cell (WBC) Count 10.06 10x3/uL (4.8-10.8)
[2025-05-12 15:07] LABS: ALT (SGPT) 22 U/L (Less than 45); AST (SGOT) 25 U/L (11-34); Albumin 4.4 g/dL (3.1-4.5); Alkaline Phosphatase 110 U/L (40-110); Anion Gap 12 mmol/L (10-20); BUN (Urea Nitrogen) 21 mg/dL (8.9-20.6); Bilirubin, Total 0.2 mg/dL (0.3-1.2); Calc. Creatinine Clearance 0 mL/min (70-130); Calcium 9.0 mg/dL (7.8-10.44); Carbon Dioxide 23 mmol/L (22-29); Chloride 102 mmol/L (98-107); Globulin 3.2 g/dL (2.4-3.5); Glucose 155 mg/dL (70-105); Potassium 4.5 mmol/L (3.5-5.1); Sodium 132 mmol/L (136-145)
[2025-05-12 16:09] LABS: Troponin I Less than 0.010 ng/mL (< 0.028)
== END 2025-05-12 16:30 | disposition home or self-care (01) ==
LOC: ERS 12:16
DX: R06.02 Shortness of breath (principal); R07.9 Chest pain, unspecified; F41.9 Anxiety disorder, unspecified; F17.210 Nicotine dependence, cigarettes, uncomplicated
CPT/HCPCS: 71046; 80053; 83880; 84484; 85025; 85379; 93005; 96372; J2060